=== PATIENT | female | born 1980 | race Caucasian/White ===

== ENCOUNTER → 2017-02-16 | Outpatient (CLI) | payer OTHER ==
[~2017-02-16] MED LIST: MTRUNK; PRENTAB26 PO; TYLUNK
== END | disposition home or self-care (01) ==
LOC: C.PAPS 15:37
PROVIDERS: ATTEND Obstetrics & Gynecology
DX: Z12.4 Encounter for screening for malignant neoplasm of cervix (principal)

== ENCOUNTER → 2017-06-23 | Outpatient (CLI) | payer OTHER | END | disposition home or self-care (01) | LOC: C.CPL 16:57 | PROVIDERS: ATTEND Family Medicine | DX: I49.1 Atrial premature depolarization (principal) ==